=== PATIENT | female | born 1950 | race Caucasian/White ===

== ENCOUNTER 2023-03-03 12:07 | Outpatient (REF) | payer MEDICARE, MEDICAID, SELFPAY | END 2023-03-03 12:08 | disposition home or self-care (01) | LOC: LBN 12:07 | PROVIDERS: Visit Provider Internal Medicine Gastroenterology | DX: R19.7 Diarrhea, unspecified (principal); D50.9 Iron deficiency anemia, unspecified | CPT/HCPCS: 87329; 87177 ==

== ENCOUNTER 2023-03-04 12:49 | Outpatient (REF) | payer MEDICARE, MEDICAID, SELFPAY | END 2023-03-04 12:50 | disposition home or self-care (01) | LOC: LBN 12:49 | PROVIDERS: Internal Medicine Gastroenterology; Visit Provider Family Medicine | DX: R19.7 Diarrhea, unspecified (principal); D50.9 Iron deficiency anemia, unspecified | CPT/HCPCS: 87177 ==

== ENCOUNTER 2023-03-05 14:24 | Outpatient (REF) | payer MEDICARE, MEDICAID, SELFPAY ==
[2023-03-05 15:16] LABS: Bilirubin Negative (Negative); Blood Negative (Negative); Clarity Clear (Clear); Glucose Negative (Negative); Ketones Negative (Negative); Leukocyte Esterase Negative (Negative); Nitrite Negative (Negative); Urobilinogen 0.2 mg/dL (Up to 0.2); pH 6.5 (5-8)
== END 2023-03-05 14:25 | disposition home or self-care (01) ==
LOC: LBN 14:24
PROVIDERS: Visit Provider Internal Medicine Gastroenterology
DX: D50.9 Iron deficiency anemia, unspecified (principal); R19.7 Diarrhea, unspecified
CPT/HCPCS: 81003; 87177